=== PATIENT | female | born 1975 | race Caucasian/White ===

== ENCOUNTER → 2016-07-19 13:26 | Emergency (ER) | payer BC ==
[~2016-07-19 13:26] MED LIST: Ketorolac INJ* 30 MG/ML 1 ML VIAL IM ONE
[2016-07-19 17:24] LABS: Hematocrit 44 % (35-47); Hemoglobin 14.3 g/dl (12.0-16.0); Mean Corpuscular HGB Conc 33 g/dl (31-36); Mean Corpuscular Hemoglobin 29 pg (27-31); Mean Corpuscular Volume 88 fL (80-97); Mean Platelet Volume 9 um3 (7.4-10.4); Red Blood Count 4.92 10^6/ul (4.0-5.4); Red Cell Distribution Width 13 % (10.5-15); White Blood Count 13.7 10^3/ul (3.5-10.8)
[2016-07-19 17:40] LABS: Calcium 9.1 mg/dL (8.6-10.3); EGFR African American 70.4 (>60); EGFR Non-African American 54.7 (>60); Globulin 2.6 g/dL (2-4); Potassium 3.8 mmol/L (3.5-5.0); Total Bilirubin 0.3 mg/dL (0.2-1.0); Total Protein 6.6 g/dL (6.4-8.9); Uric Acid 3.8 mg/dL (2.3-6.6)
--- NOTE | 2016-07-19 17:40 | ED ---
Lower Extremity - History of Current Complaint Chief Complaint: EDExtremityLower Stated Complaint: RT FOOT COMPLAINT Time Seen by Provider: 07/19/16 16:31 Pain Intensity: 9 - Allergies/Home Medications Allergies/Adverse Reactions: Allergies Allergy/AdvReac Type Severity Reaction Status Date / Time No Known Allergies Allergy Verified 07/19/16 13:29 PMH/Surg Hx/FS Hx/Imm Hx Endocrine/Hematology History: Denies: Hx Diabetes Cardiovascular History: Denies: Hx Hypertension, Hx Pacemaker/ICD Respiratory History: Denies: Hx Asthma GI History: Reports: Hx Gastroesophageal Reflux Disease - ABOUT 2 YEARS AGO-, Other GI Disorders - HAD ESOPHAGUS STRETCHED ABOUT 2 YEARS AGO- NO PROBLEMS RECENTLY History: Denies: Hx Renal Disease Musculoskeletal History: Reports: Hx Arthritis, Hx Bursitis - RIGHT SHOULDER Comment Only: Hx Rheumatoid Arthritis - UNKNOWN, Hx Osteoporosis - UNKNOWN Sensory History: Denies: Hx Contacts or Glasses, Hx Hearing Aid Opthamlomology History: Denies: Hx Contacts or Glasses Psychiatric History: Denies: Hx Panic Disorder - Surgical History Surgery Procedure, Year, and Place: PARTIAL HYSTERECTOMY. left ankle surgery [id number]. WRIST SURGERY. 3 C-SECTIONS Hx Anesthesia Reactions: No Infectious Disease History: No Infectious Disease History: Denies: Hx Clostridium Difficile, Hx Hepatitis, Hx Human Immunodeficiency Virus (HIV), Hx of Known/Suspected MRSA, Hx Shingles, Hx Tuberculosis, Hx Known/ Suspected VRE, Hx Known/Suspected VRSA, History Other Infectious Disease, Traveled Outside the [place] in Last 30 Days - Family History Known Family History: Positive: Unknown, Diabetes, Other - cancer, TIA's - Social History Alcohol Use: Rare Substance Use Type: Reports: None Hx Tobacco Use: Yes Smoking Status (MU): Heavy Every Day Tobacco Smoker Amount Used/How Often: 1/2-1 PPD X 29 YEARS Have You Smoked in the Last Year: Yes Physical Exam Vital Signs On Initial Exam: Initial Vitals Temp Pulse Resp BP Pulse Ox 97.1 F 93 16 137/84 99 07/19/16 13:30 07/19/16 13:30 07/19/16 13:30 07/19/16 13:30 07/19/16 13:30 Diagnostics - Vital Signs Vital Signs Temp Pulse Resp BP Pulse Ox 07/19/16 13:30 97.1 F 93 16 137/84 99 - Laboratory Lab Results: Lab Results 07/19/16 Range/Units 17:10 WBC 13.7 H (3.5-10.8) 10^3/ul RBC 4.92 (4.0-5.4) 10^6/ul Hgb 14.3 (12.0-16.0) g/dl Hct 44 (35-47) % MCV 88 (80-97) fL MCH 29 (27-31) pg MCHC 33 (31-36) g/dl RDW 13 (10.5-15) % Plt Count 238 (150-450) 10^3/ul MPV 9 (7.4-10.4) um3 Neut % (Auto) 58.4 (38-83) % Lymph % (Auto) 34.5 (25-47) % [place] % (Auto) 4.2 (1-9) % Eos % (Auto) 1.7 (0-6) % Baso % (Auto) 1.2 (0-2) % Absolute Neuts (auto) 8.0 H (1.5-7.7) 10^3/ul Absolute Lymphs (auto) 4.7 (1.0-4.8) 10^3/ul Absolute Monos (auto) 0.6 (0-0.8) 10^3/ul Absolute Eos (auto) 0.2 (0-0.6) 10^3/ul Absolute Basos (auto) 0.2 (0-0.2) 10^3/ul Absolute Nucleated RBC 0.01 10^3/ul Nucleated RBC % 0 Result Diagrams: 07/19/16 17:10 07/19/16 17:10 Lab Statement: Any lab studies that have been ordered have been reviewed, and results considered in the medical decision making process. Lower Extremity Course/Dx - Diagnoses Provider Diagnoses: Cellulitis Discharge - Discharge Plan Condition: Stable Disposition: HOME Prescriptions: Cephalexin CAP* [Keflex CAP*] 500 mg PO TID #30 cap Naproxen TAB* [Naprosyn 375 mg TAB*] 375 mg PO BID #30 tab Patient Education Materials: Cellulitis (ED) Referrals: Jim Berg MD [Primary Care Provider] - Additional Instructions: Take prescribed medication as directed until entire dose is finished. Take pain medication as needed for pain and inflammation. Rest and ice toe. If symptoms worsen or do not improve please return. Worsening signs include increasing redness, red streaks, fever/chills, warmth and discharge. Follow up with PCP.
--- NOTE | 2016-07-19 18:07 | RAD ---
Indication: Right toe swelling. 3 views of the right great toe demonstrates no evidence of abnormal erosion. No fractures noted. IMPRESSION: Unremarkable right great toe.
[2016-07-19 18:25] VITALS: BP 120/82
== END | disposition home or self-care (01) ==
LOC: ED 13:26
DX: L03.115 Cellulitis of right lower limb (principal)
CPT/HCPCS: 36415; 80053; 84550; 85025; 96372; 99282; J1885